=== PATIENT | female | born 1995 | race Caucasian/White ===

== ENCOUNTER 2022-07-16 18:41 | Inpatient (IN) | payer BC ==
[~2022-07-16 18:41] MED LIST: Bupivacaine 0.25% HCL 30 ML VIAL ONE
[2022-07-16 19:28] VITALS: BMI 20.9
[2022-07-16] MEDS ORDERED: hydrALAZINE 20 MG/ML VIAL SLOW IVP PRN (20:06)
[2022-07-16] MEDS ORDERED: Ondansetron PF 4 MG/2 ML Vial IVP PRN (20:36)
[2022-07-16] MEDS ORDERED: Promethazine HCl 25 MG/ML VIAL IM PRN (20:36)
[2022-07-16] MEDS ORDERED: Carboprost 250 MCG/ML AMP IM PRN (20:36)
[2022-07-16] MEDS ORDERED: Diphenoxylate HCl/Atropine Tablet PO PRN (20:36)
[2022-07-16] MEDS ORDERED: Misoprostol 200 MCG TAB PR PRN (20:36)
[2022-07-16] MEDS ORDERED: Tranexamic Acid 1,000 MG/10 ML VIAL IVP PRN (20:36)
[2022-07-16] MEDS ORDERED: Methylergonovine 0.2 MG/ML VIAL IM PRN (20:36)
[2022-07-16] MEDS ORDERED: Measles/Mumps/Rubella 10 MCG/0.5 ML VIAL SC ONE (20:39)
[2022-07-16] MEDS ORDERED: NS w/ Oxytocin 30 units 500 ML IV SCH (20:45)
[2022-07-16 21:43] LABS: Mean Corpuscular HGB CONC 33.3 g/dL (32.0-36.0); Mean Corpuscular Hemoglobin 31.9 pg (27.0-33.0); Mean Corpuscular Volume 95.6 fl (81.6-98.3); Mean Platelet Volume 10.2 fl (7.4-10.4); Platelet Count 216 10x3/uL (150-450); RBC Distribution Width 13.2 % (11.5-14.5); Red Blood Cell (RBC) Count 4.08 10x6/uL (3.90-5.03); White Blood Cell (WBC) Count 10.4 10x3/uL (3.5-10.5)
[2022-07-16] MEDS ORDERED: Lidocaine 1% (PF) 30 ML VIAL SC PRN (22:20)
[2022-07-16] MEDS ORDERED: Ibuprofen 800 MG TAB PO PRN (22:20)
[2022-07-16 22:26] LABS: HBSAg Index 0.14 S/CO (0-0.99); Hep B Surf Ag - L&D Non-Reactive S/CO (NonReactive); Syphilis Antibody Nonreactive (Nonreactive); Syphilis Antibody Index 0.05 S/CO (<1.00 Non-Reactive)
[2022-07-16] MEDS: Lactated Ringer's 1,000 ML IV SCH (22:45)
[2022-07-17] MEDS ORDERED: fentaNYL 50 mcg/mL 1 mL Vial SLOW IVP PRN (03:07)
[2022-07-17] MEDS ORDERED: Fentanyl 2 mcg/Bup 0.1% Cadd 100 ML ONE (03:26)
[2022-07-17] MEDS ORDERED: Acetaminophen 325 MG TAB PO PRN (04:54)
[2022-07-17] MEDS ORDERED: Promethazine HCl 25 MG/ML VIAL IM PRN (04:54)
[2022-07-17] MEDS ORDERED: Naloxone HCl 0.4 mg/ml Vial IVP PRN ×2 (04:54)
[2022-07-17] MEDS ORDERED: Moisturizing Cream (Eucerin) 113 GM JAR TOP PRN (04:54)
[2022-07-17] MEDS ORDERED: Lactated Ringer's 500 ML IV PRN (04:54)
[2022-07-17] MEDS ORDERED: diphenhydrAMINE 50 MG/ML VIAL IVP PRN (04:54)
[2022-07-17] MEDS ORDERED: Ondansetron PF 4 MG/2 ML Vial IVP PRN ×2 (04:54→16:52)
[2022-07-17] MEDS ORDERED: ePHEDrine Sulfate 50 MG/10 ML VIAL SLOW IVP PRN (04:54)
[2022-07-17] MEDS ORDERED: Communication Order-Pharmacy FS SCH (05:00)
[2022-07-17] MEDS ORDERED: Fentanyl 2 mcg/Bupivacaine 0.1% Cassette 100 ML EPIDURAL SCH (05:00)
[2022-07-17] MEDS: Lactated Ringer's 1,000 ML IV SCH (05:04)
[2022-07-17] MEDS ORDERED: Lanolin Ointment 7 GM TUBE TOP PRN (16:52)
[2022-07-17] MEDS ORDERED: hydrALAZINE 20 MG/ML VIAL SLOW IVP PRN (16:52)
[2022-07-17] MEDS ORDERED: NS w/ Oxytocin 30 units 500 ML IV SCH (16:52)
[2022-07-17] MEDS ORDERED: diphenhydrAMINE 25 MG CAP PO PRN (16:52)
[2022-07-17] MEDS ORDERED: HYDROcodone/Acetaminophen 5/325 mg Tablet PO PRN ×2 (16:52)
[2022-07-17] MEDS ORDERED: Bisacodyl 10 MG SUPP PR PRN (16:52)
[2022-07-17] MEDS ORDERED: Benzocaine-Menthol 82.5 ML CAN TOP PRN (16:52)
[2022-07-17] MEDS ORDERED: Boostrix 0.5 ML (Tdap) VIAL (>/=7 yrs of age) IM ONE (16:52)
[2022-07-17] MEDS ORDERED: Milk Of Magnesia 30 ML UDCUP PO PRN (16:52)
[2022-07-17] MEDS ORDERED: Preparation H Ointment 28 GM TUBE PR PRN (16:52)
[2022-07-17] MEDS: Ibuprofen 800 MG TAB PO SCH (18:55)
[2022-07-17] MEDS: Ferrous Sulfate 325 MG TAB PO SCH (23:11)
[2022-07-17] MEDS: Docusate 100 MG CAP PO SCH (23:11)
[2022-07-18] MEDS: Ibuprofen 800 MG TAB PO SCH ×2 (06:49→08:50)
[2022-07-18] MEDS: Ferrous Sulfate 325 MG TAB PO SCH (08:30)
[2022-07-18] MEDS: Docusate 100 MG CAP PO SCH (08:41)
[2022-07-18] MEDS ORDERED: Prenatal Vitamin 1 TAB PO SCH (09:00)
[2022-07-18 11:02] VITALS: BP 117/76; TEMP 98.2
== END 2022-07-18 16:20 | disposition home or self-care (01) | DRG 807 ==
LOC: CSHLD/OP 18:41 → CSHLD 20:35 → CSHPP 07-17 17:10
PROVIDERS: ADMIT Obstetrics & Gynecology; ATTEND Obstetrics & Gynecology
PROC: 10E0XZZ Delivery of Products of Conception, External Approach (ICD-10-PCS; principal; 2022-07-17)
PROC: 0HQ9XZZ Repair Perineum Skin, External Approach (ICD-10-PCS; 2022-07-17)
PROC: 10907ZC Drainage of Amniotic Fluid, Therapeutic from Products of Conception, Via Natural or Artificial Opening (ICD-10-PCS; 2022-07-17)
PROC: 3E033VJ Introduction of Other Hormone into Peripheral Vein, Percutaneous Approach (ICD-10-PCS; 2022-07-17)
DX: O69.81X0 Labor and delivery complicated by cord around neck, without compression, not applicable or unspecified (principal); Z37.0 Single live birth; Z3A.39 39 weeks gestation of pregnancy; O70.0 First degree perineal laceration during delivery
CPT/HCPCS: 36415; 51702; 85027; 86780; 86850; 86900; 86901; 87340; 99285; J2590; J3010; J7120; S0020